=== PATIENT | female | born 1950 | race Caucasian/White ===

== ENCOUNTER → 2016-11-23 | Outpatient (CLI) | payer BC ==
--- NOTE | 2016-11-23 17:10 | CR ---
EXAMINATION: Lumbar spine HISTORY: Low back pain COMPARISON: None TECHNIQUE: AP and lateral views FINDINGS: The lumbar spinal alignment appears normal. The vertebral body heights and disc spaces ronald ear well-maintained. There is no fracture or dislocation. SI joints are symmetric. Bone mineralizati on is normal. Mild marginal osteophytes are noted. IMPRESSION: Mild degenerative changes without acute findings.
--- NOTE | 2016-11-23 17:11 | CR ---
EXAMINATION: Right hip HISTORY: Bursitis COMPARISON: None TECHNIQUE: Views FINDINGS/IMPRESSION: There is no acute osseous abnormality, dislocation, or fracture identified. Bon e mineralization and joint spaces appear normal.
== END ==
LOC: MW.CHFP 12:01
PROVIDERS: ATTEND Emergency Medicine
DX: M54.5 Low back pain (principal); M70.61 Trochanteric bursitis, right hip
CPT/HCPCS: 72100; 72100-26; 73502-26-RT; 73502-RT

== ENCOUNTER 2017-11-28 11:06 | Day surgery (SDC) | payer MEDICARE ==
[~2017-11-28 11:06] MED LIST: Betamethasone Acetate/Betamethasone Sod Phosphate 30 MG/5 ML MDV ONE; Iopamidol 408 MG/ML 50 ML SDV ONE; Lidocaine 2% 5 ML SDV ONE; Ropivacaine 0.5% 5 MG/ML 30 ML SDV ONE
--- NOTE | 2017-11-28 17:06 | OR ---
SURGEON: Jinny Guzman D.O. DATE OF PROCEDURE: 11/28/2017 OR STAFF PRESENT: 1. Lydia Vu RN. 2. Lydia Jones RN. 3. Sonido Moore RT. WOUND CLASSIFICATION: I. PREOPERATIVE DIAGNOSES: 1. Cervical facet arthropathy. 2. Chronic neck pain. POSTOPERATIVE DIAGNOSES: 1. Cervical facet arthropathy. 2. Chronic neck pain. PROCEDURES PERFORMED: 1. Right C3, C4 and right C5 medial branch blocks. 2. Fluoroscopic guidance for needle placement. 3. Local with oral Valium for sedation. SCREENING QUESTIONS: The patient answered "No" to all the following questions: 1. Are you allergic to iodine, Betadine or latex? 2. Do you have a bleeding disorder? 3. Are you on anti-inflammatories or blood thinners? 4. Do you have any current local or systemic infections? MEDICAL NECESSITY: This is a patient with chronic low back pain who comes in for the above diagnostic procedure. This procedure is being performed in accordance with national guidelines written by the [employer]; please see medical necessity note in chart. DESCRIPTION OF PROCEDURE: The patient had the procedure thoroughly explained including risks, benefits and alternatives. Consent was signed in my clinic indicating understanding and willingness to proceed. The patient presented to [facility] and was escorted to the dressing room to disrobe and change into a hospital gown. Preoperative history and screening were performed by my nurse. Vital signs were taken and stable. The patient reported that Valium 10 milligrams was taken prior to the procedure. The patient was brought back to the procedure room and was first placed in the prone position on the [employer] table for the posterior approach for the cervical medial branch blocks.. The appropriate landmarks were not visible under fluroscopy secondary to anatomy as her dental caries and metal plate from [employer] table blocked view of cervical articular pillars. She was then repositioned comfortably and placed on left side down for the lateral approach with right painful side up on the procedure room table. The neck was then prepped and draped for right C3,4,5 medial branch blocks. All personnel in the procedure room were dressed in appropriate attire including surgical scrubs, head and shoe covers. This was to ensure sterility while in the treatment room. During the time fluoroscopy was in use all personnel in the operating room wore lead sow with thyroid collars. Sterile technique was used during the procedure. The fluoroscope was positioned to provide a right true lateral view of the cervical spine. Then the silhouettes of the articular pillars of both sides of the C3 segment were superimposed with tilting of the C-arm. Images of the superimposed silhouettes were split to confirm superimposition. Then the C3 medial branch block was begun by anesthetizing the skin and soft tissues with 2 cubic centimeters of 1 % Preservative-Free Lidocaine with a 25-gauge 1.5 inch needle. There were no signs of infection at the site of needle skin insertions. Using fluoroscopic guidance a sterile 22-gauge 3.5 inch spinal needle was positioned at the middle of the articular pillar of the C3 vertebral body. Precise needle placement was confirmed by fluoroscopy and 0.2 cubic centimeters of IsoVue-200 contrast dye which was injected through microbore tubing under live fluoroscopy and showed no intravascular flow pattern and adequate flow over the target C3 medial branch. Then 0.5 cubic centimeters of celeswtone and 1% lidocainePreservative-Free was injected slowly without complications after negative aspiration. Then the fluoroscope was positioned to provide a right true lateral view for the right C4 medial branch. This was begun by anesthetizing the skin and soft tissues. The fluoroscope was positioned and a sterile 22-gauge 3.5 inch needle was placed at middle of the articular pillar of C4 vertebral body. Precise needle placement was confirmed by fluoroscopy with 0.2 cubic centimeters of IsoVue-200 contrast dye injected through microbore tubing under live fluoroscopy and showed no intravascular flow pattern and adequate flow over the target medial branch. After negative aspiration, 0.5 cubic centimeters of celestone and 1% lidocaine was injected without complications. The fluoroscope was then positioned to provide a right true lateral view of the C5 medial branch block. This was begun by anesthetizing the skin and soft tissues over the right sacral sulcus. Then using fluoroscopic guidance, a sterile 22-gauge 3.5 inch spinal needle was positioned at the middle of the articular pillar at C5. Precise needle placement was confirmed by fluoroscopy and again with 0.2 cubic centimeters of IsoVue-200 contrast dye injected through microbore tubing under live fluoroscopy and showed no intravascular flow pattern and adequate flow over the target nerve. After negative aspiration, 0.5 cubic centimeters of celestone and local was injected. No complications were noted. The procedure was well tolerated and vital signs were stable during and after the procedure. The staff escorted the patient to the recovery area. The patient was given both oral and written discharge and followup instructions. The patient will follow up with a pain diary which will be evaluated over this evening doing things that would normally cause pain. We will evaluate the efficacy of the diagnostic lumbar medial branch blocks as the patient will follow up in the clinic the next day. The patient was given both oral and written discharge and followup instructions. The patient voiced understanding including understanding of those signs and symptoms that would require emergency care and knows how to contact the office if there are any questions or concerns in the meantime. PREOPERATIVE PAIN: 6/10. POSTOPERATIVE PAIN: 0/10. PLAN: Follow up in the Pain Clinic in 3 weeks. ADITHYA FORBES /[id number] YASMEEN
== END 2017-11-28 13:30 | disposition home or self-care (01) ==
LOC: MW.SDS 11:06
PROVIDERS: ATTEND Anesthesiology
DX: G89.29 Other chronic pain (principal); M54.2 Cervicalgia; M12.88 Other specific arthropathies, not elsewhere classified, other specified site; F32.9 Major depressive disorder, single episode, unspecified; E78.00 Pure hypercholesterolemia, unspecified; E03.9 Hypothyroidism, unspecified; G47.33 Obstructive sleep apnea (adult) (pediatric); R73.03 Prediabetes; Z79.899 Other long term (current) drug therapy; Z99.89 Dependence on other enabling machines and devices; Z72.0 Tobacco use
CPT/HCPCS: 64450; 64490; 64491; J0702; Q9966; J2795

== ENCOUNTER 2018-02-01 12:46 | Emergency (ER) | payer MEDICARE ==
--- NOTE | 2018-02-01 13:21 | EDM.PDOC ---
ED HPI GENERAL MEDICAL PROBLEM - General Chief Complaint: Lower Extremity Injury/Pain Stated Complaint: RT FOOT HURTS Time Seen by Provider: 02/01/18 13:10 Source of Information: Reports: Patient History Limitations: Reports: No Limitations - History of Present Illness INITIAL COMMENTS - FREE TEXT/NARRATIVE: HISTORY AND PHYSICAL: History of present illness: [Patient comes to the emergency room complaining of right foot pain. Approximately 24 hours ago she was walking in her rock garden when her R foot rolled, and she fell to the ground. Complains of pain to the medial aspect of her R foot. No ankle pain or deformity. She has noticed significant swelling and bruising to her R foot. She did not hit her head or sustain any other injury. No LOC.] Review of systems: As per history of present illness and below otherwise all systems reviewed and negative. Past medical history: As per history of present illness and as reviewed below otherwise noncontributory. Surgical history: As per history of present illness and as reviewed below otherwise noncontributory. Social history: No reported history of drug or alcohol abuse. Family history: As per history of present illness and as reviewed below otherwise noncontributory. Physical exam: HEENT: Atraumatic, normocephalic. Extremities: Ecchymosis present to top and sides of foot. Tender w/ palpation over medial foot. No ankle pain, swelling or decreased ROM. Pedal pulses are 2+ and equal bilat. Cap refill < 2 seconds. Atraumatic, negative for cords or calf pain. Neurovascular unremarkable. Neuro: Awake, alert, oriented. Cranial nerves II through XII unremarkable. Cerebellum unremarkable. Motor and sensory unremarkable throughout. Exam nonfocal. Diagnostics: [Right foot x-ray] Impression: [R metatarsal fracture] Plan: [Discussed w/ patient that nondisplaced fracture is present to 3rd/4th proximal metatarsals. She is placed in a walking boot. And advised to wear until follow up with orthopedis. She is in agreement w/ today's plan. Rx written for hydrocodone 5/325 mg (#20) sig one by mouth every 6 hours as needed for pain 0 refills.] Definitive disposition and diagnosis as appropriate pending reevaluation and review of above. Right Ankle Pain Score (Numeric/FACES): 2 - Related Data Allergies Allergy/AdvReac Type Severity Reaction Status Date / Time No Known Allergies Allergy Verified 02/01/18 12:57 Home Meds: Home Meds Biotin 1 tab PO DAILY 05/27/15 [History] DULoxetine HCl [Cymbalta] 1 tab PO DAILY 05/27/15 [History] Gabapentin [Neurontin] 1 tab PO TID 05/27/15 [History] L.acidoph,Paracasei, B.lactis [Probiotic] 1 tab PO DAILY 05/27/15 [History] Levothyroxine Sodium [Synthroid] 1 tab PO ACBREAKFAST 05/27/15 [History] Pantoprazole Sodium 1 tab PO DAILY 05/27/15 [History] Pravastatin Sodium [Pravachol] 1 tab PO DAILY 05/27/15 [History] Sennosides/Docusate Sodium [Sennosides-Docusate Sodium] 1 tab PO ASDIRECTED 10/10 [History] Simethicone [Gas-X Ultra Strength] 1 tab PO Q6HR PRN 05/27/15 [History] Vitamin B Complex 1 tab PO DAILY 05/27/15 [History] buPROPion [buPROPion XL] 1 tab PO DAILY 05/27/15 [History] Past Medical History Cardiovascular History: Reports: High Cholesterol Respiratory History: Reports: Sleep Apnea Other Respiratory History: Sleep apnea with CPAP Other Gastrointestinal History: Produce lots of acid it seems, going to [facility] for test for h-pylori bacteria Musculoskeletal History: Reports: Fibromyalgia Other Musculoskeletal History: hx: Fractured wrist, Low back pain (hx: injury to low back)_ Psychiatric History: Reports: Depression Endocrine/Metabolic History: Reports: Hypothyroidism Other Endocrine/Metabolic History: Hypothyroidism Other Dermatologic History: Rash to scalp treat with medicated soap does well - Past Surgical History GI Surgical History: Reports: Cholecystectomy Neurological Surgical History: Reports: Other (See Below) Other Neurological Surgeries/Procedures: c-spine nerve block Musculoskeletal Surgical History: Reports: Knee Replacement, Other (See Below) Other Musculoskeletal Surgeries/Procedures:: meniscus repairs Social & Family History - Family History Family Medical History: Noncontributory - Tobacco Use Smoking Status *Q: Never Smoker Second Hand Smoke Exposure: No - Caffeine Use Caffeine Use: Reports: Coffee - Recreational Drug Use Recreational Drug Use: No Review of Systems - Review of Systems Review Of Systems: ROS reveals no pertinent complaints other than HPI. ED EXAM, GENERAL - Physical Exam Exam: See Below Course - Vital Signs Last Recorded V/S: Last Vital Signs Temp 97.5 F 02/01/18 12:53 Pulse 79 02/01/18 14:00 Resp 18 02/01/18 14:00 BP 151/67 H 02/01/18 14:00 Pulse Ox 99 02/01/18 14:00 - Orders/Labs/Meds Orders: Active Orders 24 hr Category Date Time Status Foot 2V Rt [CR] Stat Exams 02/01/18 13:12 Taken Departure - Departure Time of Disposition: 14:15 Disposition: Home, Self-Care 01 Condition: Good Clinical Impression: Metatarsal fracture - Discharge Information Instructions: Metatarsal Fracture Referrals: Martin Cuevas MD [Primary Care Provider] - Forms: ED Department Discharge Additional Instructions: The following information is given to patients seen in the emergency department who are being discharged to home. This information is to outline your options for follow-up care. We provide all patients seen in our emergency department with a follow-up referral. The need for follow-up, as well as the timing and circumstances, are variable depending upon the specifics of your emergency department visit. If you don't have a primary care physician on staff, we will provide you with a referral. We always advise you to contact your personal physician following an emergency department visit to inform them of the circumstance of the visit and for follow-up with them and/or the need for any referrals to a consulting specialist. The emergency department will also refer you to a specialist when appropriate. This referral assures that you have the opportunity for follow-up care with a specialist. All of these measure are taken in an effort to provide you with optimal care, which includes your follow-up. Under all circumstances we always encourage you to contact your private physician who remains a resource for coordinating your care. When calling for follow-up care, please make the office aware that this follow-up is from your recent emergency room visit. If for any reason you are refused follow-up, please contact the [facility] emergency department at and asked to speak to the emergency department charge nurse. [facility] [address], [address] [place] [address] Follow-up at the orthopedic clinic listed above. If you don't hear from your office by Saturday morning contact the phone number listed above to get scheduled for a follow-up. You may take ibuprof en,alternating with Tylenol as he needed for mild-to- moderate pain. You were being given a prescription for hydrocodone to take as needed for moderate to severe pain. Rest, elevate, wear a boot and apply ice as much as possible. Return to ER as needed as discussed. - My Orders Last 24 Hours: My Active Orders 02/01/18 13:12 Foot 2V Rt [CR] Stat - Assessment/Plan Last 24 Hours: My Active Orders 02/01/18 13:12 Foot 2V Rt [CR] Stat
[2018-02-01 14:38] VITALS: BP 151/67
--- NOTE | 2018-02-03 14:14 | CR ---
EXAM DATE: 02/01/18 PATIENT'S AGE: 67 Patient: XUAN GIBBS Facility: [place], [place] Site . Site : 1950 Study: XRay Extremity Right FOOT [id number]/9/2018 1:32:40 PM Ordering Physician: Doctor Shanks Final Report: INDICATION: Foot pain. TECHNIQUE: Portable AP and lateral projections of the right foot. COMPARISON: 01/18/2011. FINDINGS: Marked osteoarthritic changes at the 1st MTP joint with joint space narrowing, subchondral sclerosis and marginal osteophytes similar in appearance compared to the previous exam. There is dorsal soft tissue swelling at the midfoot. On the AP projection there is a linear lucency which projects in the area of overlap between the base of the 3rd and 4th metatarsals. Can`t exclude a nondisplaced fracture of either bone. An oblique view may be helpful in this regard if the patient has symptoms in this region. Plantar and posterior calcaneal enthesophytes. IMPRESSION: 1. Possible nondisplaced fracture involving either the 3rd or 4th proximal metatarsals. There is dorsal soft tissue swelling. An oblique view may be helpful in this regard. 2. 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 Dictated by Conor Durán MD @ Feb 01 2018 1:40PM (Electronic Signature) Report Signed by Proxy. YASMEEN
== END 2018-02-01 14:24 | disposition home or self-care (01) ==
LOC: MW.ED 12:46
DX: S92.334A Nondisplaced fracture of third metatarsal bone, right foot, initial encounter for closed fracture (principal); S92.344A Nondisplaced fracture of fourth metatarsal bone, right foot, initial encounter for closed fracture; E03.9 Hypothyroidism, unspecified; E78.00 Pure hypercholesterolemia, unspecified; Z79.899 Other long term (current) drug therapy; W19.XXXA Unspecified fall, initial encounter
CPT/HCPCS: 73620-26-RT; 73620-RT; 99283

== ENCOUNTER 2018-12-24 15:32 | Day surgery (SDC) | payer MEDICARE ==
[~2018-12-24 15:32] MED LIST changes: -Betamethasone Acetate/Betamethasone Sod Phosphate 30 MG/5 ML MDV ONE; +Bupivacaine 0.5% 10 ML SDV ONE; +Bupivacaine 0.5% 30 ML SDV ONE; -Iopamidol 408 MG/ML 50 ML SDV ONE; +Midazolam 1 MG/ML 2 ML SDV ONE; +Ondansetron 4 MG/2 ML SDV ONE; +Propofol 200 MG/20 ML SDV ONE; +Rocuronium 100 MG/10 ML Syringe ONE; -Ropivacaine 0.5% 5 MG/ML 30 ML SDV ONE; +ceFAZolin 1 GM Vial ONE; +fentaNYL 250 MCG/5 ML SDV ONE
[2018-12-24] MEDS: Lactated Ringers 1,000 ML IV SCH ×2 (15:55→21:34)
[2018-12-24] MEDS ORDERED: cefOXitin 2 GM in Premix Bag 1 BAG IV ONE (15:58)
--- NOTE | 2018-12-24 16:08 | PCM.PREANE ---
Preanesthetic Assessment - Anesthesia/Transfusion/Family Hx Anesthesia History: Prior Anesthesia Without Reaction Other Type of Anesthesia Reaction Comment: Sick 1 time post surgery, others all okay Family History of Anesthesia Reaction: No Transfusion History: No Prior Transfusion(s) Intubation History: Unknown - Review of Systems General: No Symptoms Pulmonary: No Symptoms Cardiovascular: No Symptoms Gastrointestinal: Abdominal Pain Neurological: No Symptoms Other: Reports: None - Physical Assessment Height: 1.57 m Weight: 91.626 kg ASA Class: 3E Mental Status: Alert & Oriented x3 Airway Class: Mallampati = 2 Dentition: Reports: Normal Dentition Thyro-Mental Finger Breadths: 2 (short neck) Mouth Opening Finger Breadths: 3 ROM/Head Extension: Limited/Partial Lungs: Clear to Auscultation, Normal Respiratory Effort Cardiovascular: Regular Rate, Regular Rhythm - Allergies Allergies/Adverse Reactions: Allergies Allergy/AdvReac Type Severity Reaction Status Date / Time No Known Allergies Allergy Verified 02/01/18 12:57 - Blood Blood Available: No - Anesthesia Plan Pre-Op Medication Ordered: None - Acknowledgements Anesthesia Type Planned: General Anesthesia Pt an Appropriate Candidate for the Planned Anesthesia: Yes Alternatives and Risks of Anesthesia Discussed w Pt/Guardian: Yes Pt/Guardian Understands and Agrees with Anesthesia Plan: Yes PreAnesthesia Questionnaire HEENT History: Reports: Glaucoma, Sinusitis Cardiovascular History: Reports: High Cholesterol Respiratory History: Reports: Sleep Apnea Other Respiratory History: Sleep apnea with CPAP Gastrointestinal History: Reports: Other (See Below) (acute appendicitis) 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 Low back pain (hx: injury to low back)_ Neurological History: Reports: Other (See Below) (paresthesias bilat. arms) Other Neuro History: degenerative disc disease Psychiatric History: Reports: Anxiety, Depression Endocrine/Metabolic History: Reports: Hypothyroidism, Obesity/BMI 30+, Other ( See Below) (prediabetes) Other Endocrine/Metabolic History: Hypothyroidism, hx of Graves disease Other Dermatologic History: Rash to scalp treat with medicated soap does well - Past Surgical History Head Surgeries/Procedures: Reports: None GI Surgical History: Reports: Cholecystectomy, Colonoscopy, EGD Neurological Surgical History: Reports: Other (See Below) Other Neurological Surgeries/Procedures: c-spine nerve block Musculoskeletal Surgical History: Reports: Knee Replacement (right knee), Other (See Below) Other Musculoskeletal Surgeries/Procedures:: meniscus repairs, release of [employer] right hand - SUBSTANCE USE Smoking Status *Q: Never Smoker Recreational Drug Use History: No - HOME MEDS Home Medications: Home Meds Biotin 1 tab PO DAILY 05/27/15 [History] DULoxetine HCl [Cymbalta] 1 tab PO DAILY 05/27/15 [History] Gabapentin [Neurontin] 1 tab PO TID 05/27/15 [History] L.acidoph,Paracasei, B.lactis [Probiotic] 1 tab PO DAILY 05/27/15 [History] Levothyroxine Sodium [Synthroid] 1 tab PO ACBREAKFAST 05/27/15 [History] Pantoprazole Sodium 1 tab PO DAILY 05/27/15 [History] Pravastatin Sodium [Pravachol] 1 tab PO DAILY 05/27/15 [History] Sennosides/Docusate Sodium [Sennosides-Docusate Sodium] 1 tab PO ASDIRECTED 10/10 [History] Simethicone [Gas-X Ultra Strength] 1 tab PO Q6HR PRN 05/27/15 [History] Vitamin B Complex 1 tab PO DAILY 05/27/15 [History] buPROPion [buPROPion XL] 1 tab PO DAILY 05/27/15 [History] - CURRENT (IN HOUSE) MEDS Current Meds: Current Medications Cefoxitin Sodium 2 gm/ Premix 50 mls @ 100 mls/hr IV ONETIME ONE Stop: 12/24/18 16:27 Lactated Ringer's (Ringers, Lactated) 1,000 mls @ 125 mls/hr IV ASDIRECTED YANICK Discontinued Medications Bupivacaine HCl (Sensorcaine-Mpf 0.5%) Confirm Administered Dose 20 ml .ROUTE .STK-MED ONE Stop: 12/24/18 15:28 Bupivacaine HCl (Marcaine 0.5%) Confirm Administered Dose 30 ml .ROUTE .STK-MED ONE Stop: 12/24/18 15:30 Cefazolin Sodium (Ancef) Confirm Administered Dose 1 gm .ROUTE .STK-MED ONE Stop: 12/24/18 15:28 Fentanyl (Sublimaze) Confirm Administered Dose 250 mcg .ROUTE .STK-MED ONE Stop: 12/24/18 15:28 Acetaminophen (Ofirmev) Confirm Administered Dose 100 mls @ as directed IV .STK- MED ONE Stop: 12/24/18 15:28 Lidocaine (Xylocaine-Mpf 2%) Confirm Administered Dose 5 ml .ROUTE .STK-MED ONE Stop: 12/24/18 15:27 Midazolam HCl (Versed 1 Mg/Ml) Confirm Administered Dose 2 mg .ROUTE .STK-MED ONE Stop: 12/24/18 15:28 Ondansetron HCl (Zofran) Confirm Administered Dose 4 mg .ROUTE .STK-MED ONE Stop: 12/24/18 15:27 Propofol (Diprivan 20 Ml) Confirm Administered Dose 200 mg .ROUTE .STK-MED ONE Stop: 12/24/18 15:28 Rocuronium [place] (Zemuron) Confirm Administered Dose 100 mg .ROUTE .STK-MED ONE Stop: 12/24/18 15:27 Succinylcholine Chloride (Succinylcholine Chloride) Confirm Administered Dose 200 mg .ROUTE .STK-MED ONE Stop: 12/24/18 15:27
[2018-12-24] MEDS ORDERED: cefOXitin 0 ML ONE (16:29)
[2018-12-24] MEDS ORDERED: cefOXitin 1 GM Vial ONE ×2 (16:53)
[2018-12-24] MEDS ORDERED: Sugammadex Sodium 200 MG/2 ML VIAL ONE (17:28)
[2018-12-24] MEDS ORDERED: Ketorolac 30 MG/ML SDV ONE (17:29)
[2018-12-24] MEDS ORDERED: Acetaminophen/HYDROcodone 325-5 MG Tab PO PRN (17:45)
[2018-12-24] MEDS ORDERED: cefOXitin 1 GM in Premix Bag 1 BAG IV SCH (17:45)
[2018-12-24] MEDS ORDERED: Ondansetron 4 MG/2 ML SDV IVPUSH PRN (17:45)
[2018-12-24] MEDS ORDERED: Morphine 10 MG/ML Syringe IVPUSH PRN (17:45)
--- NOTE | 2018-12-24 17:49 | PCM.OPNOTE ---
- General Post-Op/Procedure Note Date of Surgery/Procedure: 12/24/18 Operative Procedure(s): Laparoscopic appendectomy Pre Op Diagnosis: Acute abdomen. Acute appendicitis Post-Op Diagnosis: Same Anesthesia Technique: General ET Tube (ASA IIIE) Primary Surgeon: Abad Strickland Fluid Replacement, Intraop: 1,000 EBL in mLs: 10 Condition: Good Free Text/Narrative:: Intake & Output 12/24/18 12/24/18 12/24/18 03:59 11:59 19:59 Output Total 275 Balance -275 DICTATION [id number] CPTCODE [id number]
[2018-12-24] MEDS ORDERED: HYDROmorphone 2 MG/ML SDV IVPUSH PRN (17:57)
[2018-12-24] MEDS ORDERED: fentaNYL 100 MCG/2 ML SDV IVPUSH PRN (17:57)
--- NOTE | 2018-12-24 18:27 | PCM.POSTAN ---
POST ANESTHESIA ASSESSMENT - MENTAL STATUS Mental Status: Oriented - VITAL SIGNS Pulse Rate: 93 SaO2: 95 Resp Rate: 17 Blood Pressure: 115/61 Temperature: 37.6 C - RESPIRATORY Respiratory Status: Respiratory Rate WNL, Airway Patent, O2 Saturation Stable - CARDIOVASCULAR CV Status: Pulse Rate WNL, Blood Pressure Stable - GASTROINTESTINAL GI Status: No Symptoms - POST OP HYDRATION Hydration Status: Adequate & Stable (Patient Status Stable. No Anesthesia adverse outcomes noted.)
[2018-12-24] MEDS: Acetaminophen 325 MG Tab PO PRN (22:06)
[2018-12-25] MEDS ORDERED: cefOXitin 1 GM in Premix Bag 1 BAG IV SCH (00:30)
[2018-12-25] MEDS: Lactated Ringers 1,000 ML IV SCH ×2 (05:29→13:39)
[2018-12-25] MEDS: cefOXitin 1 GM in Premix Bag 1 BAG IV SCH ×2 (08:19→15:59)
--- NOTE | 2018-12-25 08:27 | PCM48HPAN ---
Post Anesthesia Note - EVALUATION WITHIN 48HRS OF ANESTHETIC Vital Signs in Normal Range: Yes Patient Participated in Evaluation: Yes Respiratory Function Stable: Yes Airway Patent: Yes Cardiovascular Function Stable: Yes Hydration Status Stable: Yes Pain Control Satisfactory: Yes Nausea and Vomiting Control Satisfactory: Yes Mental Status Recovered: Yes Pulse Rate: 93 Resp Rate: 18 Temperature: 38.6 C Blood Pressure: 115/61 - COMMENTS/OBSERVATIONS Free Text/Narrative:: no anesthesia problems
[2018-12-25] MEDS: Acetaminophen 325 MG Tab PO PRN (09:11)
--- NOTE | 2018-12-25 10:49 | OR ---
SURGEON: Abad Strickland M.D. DATE OF PROCEDURE: 12/24/2018 PROCEDURE PERFORMED: Laparoscopic appendectomy. ANESTHESIA: General endotracheal. ASA CLASSIFICATION: IIIE. PREOPERATIVE DIAGNOSIS: Acute abdomen, acute tip appendicitis. POSTOPERATIVE DIAGNOSIS: Acute abdomen, acute tip appendicitis. ESTIMATED BLOOD LOSS: 20 mL. INTRAOPERATIVE FLUID REPLACEMENT: 1000 mL of crystalloid. DESCRIPTION OF PROCEDURE: The patient was taken to the operating room and placed on the operating table in the supine position. Time-out was called for appropriate identification of the patient and procedure. Thigh-high TEDs and sequential compression boots were placed. Following satisfactory attainment of general endotracheal anesthesia, a Will catheter was placed in the patient's urinary bladder. The abdomen was prepped with DuraPrep solution, sterile drapes were applied. The skin just above the umbilicus was infiltrated with 0.5% Marcaine solution. The skin incision was made and deepened into the subcutaneous tissue obtaining hemostasis with the use of electrocautery. The Veress needle was introduced into the peritoneal cavity. Saline drop test was positive. Carbon dioxide pneumoperitoneum was established with the release set at 13 cm of water. Once satisfactory pneumoperitoneum was established, Veress needle was removed, and a 5 mm camera port was placed through the supraumbilical incision. Under camera vision and with her head tilted down, a 12 mm suprapubic port was placed. The skin was infiltrated with 0.5% Marcaine solution. Once the 12 [address] was in place, a 5 mm left lower quadrant port was also placed, again infiltrating skin with 0.5% Marcaine solution prior to making incision. The appendix was grasped, the tip was acutely inflamed as indicated on the CT scan. The mesoappendix was taken down with the Harmonic scalpel. The appendix was doubly ligated with 0 PDS endo-loops. The appendix was then divided with the Harmonic Scalpel and placed in an EndoCatch which remained in situ. The right lower quadrant was irrigated with 1 L of 1% Ancef solution. All fluid was aspirated. Once that was accomplished, the patient was returned to the neutral position from the head down left lateral position. The EndoCatch containing appendix was removed without difficulty. The wounds were inspected for hemostasis after the two 5 mm trocars were removed. Small bleeding sites were electrocoagulated. The suprapubic and supraumbilical incisions were closed in 2 layers approximating the subcutaneous tissue with 3-0 Vicryl and the skin with subcuticular 4-0 Monocryl. The left lower quadrant port was closed with subcuticular 4-0 Monocryl. All incisions were Steri-Stripped and dressed with sterile Tegaderm pads. Sponge, instrument counts were all correct. Will catheter was removed prior to emergence from anesthesia. Following emergence from anesthesia and extubation, the patient was taken to recovery room in satisfactory condition. BETHANY FORBES /[id number]
[2018-12-25 15:54] VITALS: BP 145/65
== END 2018-12-25 18:55 | disposition home or self-care (01) ==
LOC: MW.SDS 15:32 → MW.MS 16:02 → MW.SDS 12-25 18:55
PROVIDERS: ATTEND Surgery
DX: K35.32 Acute appendicitis with perforation, localized peritonitis, and gangrene, without abscess (principal); E03.9 Hypothyroidism, unspecified; E78.00 Pure hypercholesterolemia, unspecified; F41.9 Anxiety disorder, unspecified; F32.9 Major depressive disorder, single episode, unspecified; J01.90 Acute sinusitis, unspecified; G47.33 Obstructive sleep apnea (adult) (pediatric); R73.03 Prediabetes; M17.12 Unilateral primary osteoarthritis, left knee; Z88.8 Allergy status to other drugs, medicaments and biological substances; Z90.49 Acquired absence of other specified parts of digestive tract; Z99.89 Dependence on other enabling machines and devices; Z79.899 Other long term (current) drug therapy
CPT/HCPCS: 44970; A9270; J0330; J0690; J0694; J1885; J2001; J2250; J2405; J2704; J3010; J3490; J7050; J7120; 88304; J0131